=== PATIENT | male | born 1950 | race Hispanic/Latino ===

== ENCOUNTER 2017-12-10 05:33 | Day surgery (SDC) | payer OTHER ==
[~2017-12-10] VITALS: Ht 180.3 cm; Wt 86.0 kg
[2017-12-10 05:59] VITALS: BP 116/65
[2017-12-10] MEDS ORDERED: SODIUM CHLORIDE 0.9% 1000ML 1,000 ML IV ONE (06:01)
[2017-12-10] MEDS ORDERED: PROPOFOL 10 MG/ML 20ML VIAL IV ONE ×3 (06:25→07:08)
[2017-12-10] MEDS ORDERED: GLYCOPYRROLATE 1 MG/5 ML SYRINGE ONE (06:28)
[2017-12-10] MEDS ORDERED: OMEP20CA10 PO (06:31)
[2017-12-10] MEDS ORDERED: LOVA20TA3 PO (06:31)
[2017-12-10] MEDS ORDERED: LEVO137T2 PO (06:31)
[2017-12-10] MEDS ORDERED: TAMS0.4C32 PO (06:31)
[2017-12-10] MEDS ORDERED: CALC-866 PO (06:31)
[2017-12-10] MEDS ORDERED: METF-446 PO (06:31)
[2017-12-10] MEDS ORDERED: CHOL4PAC21 PO (06:31)
[2017-12-10] MEDS ORDERED: GLYCOPYRROLATE 0.2 MG/ML 5 ML VIAL ONE (07:01)
[2017-12-10 07:15] VITALS: BP 87/45
[2017-12-10 07:21] VITALS: BP 94/51
[2017-12-10 07:25] VITALS: BP 106/54
== END 2017-12-10 08:05 | disposition home or self-care (01) ==
LOC: DAH 05:33 → ENDO 05:33
PROVIDERS: ATTEND Internal Medicine
DX: K31.7 Polyp of stomach and duodenum (principal); D13.2 Benign neoplasm of duodenum; B37.81 Candidal esophagitis; K29.50 Unspecified chronic gastritis without bleeding; E11.9 Type 2 diabetes mellitus without complications; E78.00 Pure hypercholesterolemia, unspecified; E03.9 Hypothyroidism, unspecified; I10 Essential (primary) hypertension; N40.0 Benign prostatic hyperplasia without lower urinary tract symptoms; H26.9 Unspecified cataract; M19.90 Unspecified osteoarthritis, unspecified site; H44.9 Unspecified disorder of globe; Z85.038 Personal history of other malignant neoplasm of large intestine; Z90.49 Acquired absence of other specified parts of digestive tract; Z98.890 Other specified postprocedural states; Z90.89 Acquired absence of other organs; Z87.891 Personal history of nicotine dependence
CPT/HCPCS: 43237; 43239; 82948 ×2; 88305; 88312; 93005; A4606; J2704 ×3; J3490 ×2; J7030; 43232

== ENCOUNTER → 2018-04-18 | Outpatient (CLI) | payer OTHER ==
[~2018-04-18] MED LIST: CALC-866 PO; CHOL4PAC21 PO; LEVO137T2 PO; LOVA20TA3 PO; METF-446 PO; OMEP20CA10 PO; TAMS0.4C32 PO
[2018-04-18 15:45] LABS: CREATININE 0.9 mg/dL (0.5-1.5)
== END | disposition home or self-care (01) ==
LOC: LAB 14:32
PROVIDERS: ATTEND Internal Medicine Gastroenterology
DX: D13.2 Benign neoplasm of duodenum (principal)
CPT/HCPCS: 36415; 82565; 84520

== ENCOUNTER → 2018-04-24 | Outpatient (CLI) | payer OTHER ==
[~2018-04-24] MED LIST changes: +IOHEXOL-350 75 ML VIAL IV ONE
== END | disposition home or self-care (01) ==
LOC: RAH 09:38
PROVIDERS: ATTEND Internal Medicine Gastroenterology
DX: D13.2 Benign neoplasm of duodenum (principal); N32.89 Other specified disorders of bladder; Z90.49 Acquired absence of other specified parts of digestive tract
CPT/HCPCS: 74178; Q9967

== ENCOUNTER → 2018-04-28 | Outpatient (CLI) | payer OTHER ==
[~2018-04-28] MED LIST changes: -IOHEXOL-350 75 ML VIAL IV ONE
== END | disposition home or self-care (01) ==
LOC: RAH 13:36
PROVIDERS: ATTEND Internal Medicine
DX: L03.115 Cellulitis of right lower limb (principal); I70.90 Unspecified atherosclerosis
CPT/HCPCS: 93925

== ENCOUNTER 2022-09-26 16:27 | Emergency (ER) | payer OTHER ==
[~2022-09-26] VITALS: Ht 180.3 cm; Wt 84.4 kg
[~2022-09-26 16:27] MED LIST changes: -CALC-866 PO; -CHOL4PAC21 PO; -LOVA20TA3 PO; +MULT-30 PO; -OMEP20CA10 PO; +ROSU5TAB12 PO; +SILD20TA14 PO; +VITA200C75 PO
[2022-09-26 18:03] LABS: BASOPHILS # (AUTO) 0.05 K/uL (0.00-0.20); BASOPHILS % (AUTO) 0.6 % (0.0-5.0); EOSINOPHILS # (AUTO) 0.23 K/uL (0.00-0.70); EOSINOPHILS % (AUTO) 2.9 % (0.0-8.0); HEMATOCRIT 35.4 % (42-54); IMMATURE GRANULOCYTE ABSOLUTE 0.03 K/uL (0-1); LYMPHOCYTES # (AUTO) 1.6 K/uL (1.0-4.8); LYMPHOCYTES % (AUTO) 20.1 % (21.0-51.0); MEAN CORPUSCULAR HEMOGLOBIN 31.7 pg (27.0-33.0); MEAN CORPUSCULAR HGB CONC 34.2 g/dL (32.0-36.0); MEAN CORPUSCULAR VOLUME 92.7 fL (79-99); MONOCYTES # (AUTO) 0.5 K/uL (0.1-1.0); NEUTROPHILS # (AUTO) 5.6 K/uL (1.8-7.7); PLATELET COUNT (AUTO) 160 K/uL (130-400); RED BLOOD CELL COUNT(AUTO) 3.82 MIL/uL (4.50-6.20); RED CELL DISTRIBUTION WIDTH 13.5 % (11.0-15.5); WHITE BLOOD COUNT (AUTO) 8.1 K/uL (4.8-10.8)
[2022-09-26 18:20] LABS: CREATININE 1.2 mg/dL (0.5-1.5); POTASSIUM 4.3 mmol/L (3.5-5.1)
[2022-09-26 18:24] LABS: ALBUMIN 3.4 g/dL (3.5-5.0); BILIRUBIN,TOTAL 0.6 mg/dL (0.2-1.0); TOTAL PROTEIN, SERUM 6.9 g/dL (6.0-8.3)
[2022-09-26] MEDS ORDERED: 0.9%NACL 1000ML 2,500 ML IV SCH (19:00)
[2022-09-26 19:14] LABS: INR 0.98 (0.85-1.15); PROTHROMBIN TIME 11.4 SEC (9.6-11.6)
[2022-09-26 19:15] LABS: PARTIAL THROMBOPLASTIN TIME 26.7 SEC (26.3-35.5)
[2022-09-26 23:32] VITALS: BP 122/74; PULSE 76; RESP 18; O2SAT 98
== END 2022-09-26 23:38 | disposition home or self-care (01) ==
LOC: EDH 16:27
DX: I95.9 Hypotension, unspecified (principal); E86.0 Dehydration; E11.9 Type 2 diabetes mellitus without complications; E03.9 Hypothyroidism, unspecified; E78.00 Pure hypercholesterolemia, unspecified; Z79.84 Long term (current) use of oral hypoglycemic drugs; Z79.890 Hormone replacement therapy; Z79.899 Other long term (current) drug therapy
CPT/HCPCS: 36415; 71045; 71270; 80053; 82550; 83605; 84484; 85025; 85610; 85730; 87040; 93005

== ENCOUNTER → 2024-09-03 | Outpatient (CLI) | payer OTHER ==
[~2024-09-03] MED LIST changes: -ROSU5TAB12 PO; +ROSU5TAB51 PO
--- NOTE | 2024-09-03 15:16 | HMCIMG ---
Exam: Bone mineral densitometry History: Osteoporosis screening. 73-year-old male Comparison: No prior studies are available for comparison. Technique: BMD evaluation at the hip and femur were performed. The following BMD values were obtained: Femoral neck: 1.047 g/cm??? corresponding to a T score of 0.5 and a Z score of 1.8. Total hip: 1.183 g/cm??? corresponding to a T score of 1.0 and a Z score of 1.7. Total spine : 1.405 g/cm??? corresponding to a T score of 2.9 and a Z score of 3.9. Conclusion 1. The examination above is compatible with normal bone mineral density based upon the WHO classification system. 2. There are no prior studies for comparison.. 3. The patient is not at increased fracture risk based upon this examination. Please note the following: * The World Health Organization, WHO classification is assigned to the lowest resultant T score obtained above. * WHO classifications do not apply to premenopausal women, men younger than 50 and children. For these individuals, Z scores above -2.0 are considered normal for age. For these individuals, Z scores less than -2.0 are considered to have low bone density for age. T-scores should not be utilized for these patients. Please correlate clinically as the patient's age and sex may not be available at the time of interpretation. WHO classification for T-scores: (Used for postmenopausal women and men older than 50 years of age). Normal: -1.0 or greater Osteopenia: Between -1.0 and -2.5 Osteoporosis: Less than -2.5 /[place]
== END | disposition home or self-care (01) ==
LOC: RAH 14:06
PROVIDERS: ATTEND Internal Medicine
DX: M81.0 Age-related osteoporosis without current pathological fracture (principal); M85.89 Other specified disorders of bone density and structure, multiple sites; Z79.52 Long term (current) use of systemic steroids
CPT/HCPCS: 77080